=== PATIENT | male | born 1955 | race Caucasian/White ===

== ENCOUNTER → 2016-07-05 | Outpatient (CLI) | payer OTHER, BC ==
[~2016-07-05] MED LIST: HYDROCODON-ACE1 EAC9 PO; LISINOPRIL20 MG PO; SIMVASTATIN20 MG PO; ZOCOR PO
--- NOTE | ~2016-07-05 | MR164 ---
[facility] A Service of [facility] & [facility] RADIOLOGY TEXT RESULTS PATIENT: CARLEY VILLEGAS LOCATION: [facility] : 53 UNIT #: [id number] AGE: [address]: Lavonne Way MD SEX: M ORDER DR: [id number] [address] [address] [id number] O MR#: [id number] Acc #: [id number] NAME: CARLEY VILLEGAS : 1955 SEX: M STUDY DATE/TIME: 07/05/2016 15:10 UNIT: [facility] ROOM: STUDY DESCRIPTION: MR Shoulder Wo Contrast Lt Attending Physician: Lavonne Way M.D. Referring Physician: Lavonne Way M.D. Ordering Physician: Lavonne Way M.D. Primary Care Physician: Lavonne Way M.D. MRI CENTER REPORT This report is preliminary unless electronic signature is present. EXAM MRI of the left shoulder without contrast HISTORY 60-year-old male complains of shoulder pain, chronic shoulder pain. Also complains of biceps muscle pain. Limited range of motion. Job requires repetitive motion. FINDINGS Multiplanar multiecho imaging was performed of the left shoulder utilizing a high field magnet dedicated protocol. Examination demonstrates a moderate AC joint arthropathy with superiorly directed distal clavicular osteophyte capsular hypertrophy and a trace amount of AC joint fluid. No significant periarticular edema. Marrow signal within the proximal humerus and glenoid appears normal. Glenohumeral joint fluid within normal limits. The rotator cuff is abnormal demonstrating marked attenuation of the critical zone and distal aspect of the supraspinatus tendon probably represents an area of acute on chronic tear and chronic tendinopathy. There is a focal area of attenuation measuring 9 mm AP by 13 mm medial to lateral dimension within the critical zone of the supraspinatus tendon which probably represents a full-thickness or near full-thickness tear. I also suspect there is a full-thickness tear along the anterior aspect of the distal insertion estimated up to 1.5 cm though this is somewhat difficult to confirm on other planes of imaging. Again both the supraspinatus and infraspinatus tendons demonstrate attenuation most likely related to extensive partial tears and chronic tendinopathy. There is a moderate amount of subacromial-subdeltoid bursal inflammation. Teres minor tendon appears intact. The subscapularis tendon appears intact. Along the superior margin of the subscapularis tendon in the anterior medial shoulder there is a prominent fluid collection surrounding the superior margin of the subscapularis tendon. It is unclear whether this [facility] A Service of [facility] RADIOLOGY TEXT RESULTS PATIENT: CARLEY VILLEGAS LOCATION: [facility] : 54 UNIT #: [id number] AGE: [address]: Lavonne Way MD SEX: M ORDER DR: represents a ganglion cyst or represents a component of bursitis. This measures approximately 4.3 cm medial to lateral by 2.8 cm cephalocaudal dimension by approximately 1.7 cm in depth. There is degeneration of the superior labrum. The biceps anchor is not visualized and the long tendon of the biceps is not seen within the bicipital groove and felt to be torn. There does appear to be a thin slip of tissue within the anterior bicipital groove which may represent a slip of the biceps or a small remnant of the biceps. This structure appears partially subluxed out of the bicipital groove into the substance of the subscapularis tendon and may represent a partial tear of the cranial fibers of the subscapularis tendon. Anterior-posterior labrum unremarkable. Deltoid and extraarticular soft tissues unremarkable. IMPRESSION 1. Diffuse rotator cuff pathology with a suspected full-thickness tear within the critical zone of the supraspinatus tendon measuring 9 x 13 mm. Both the supraspinatus and infraspinatus tendons demonstrate evidence of chronic tendinopathy and probable extensive partial tears and there may even be a full-thickness tear in the far anterior distal aspect of the supraspinatus tendon though this is not well demonstrated on this study. Please see above for details. 2. Subacromial-subdeltoid bursitis. 3. Subscapularis tendinopathy with a suspected partial tear cranial fibers of the subscapularis. 4. A suspected complete tear of the long tendon of the biceps though there may be an accessory slip or remnant of the long tendon partially subluxed out of the bicipital groove. 5. Prominent multiloculated collection along the superior margin of the subscapularis medial to the glenohumeral joint. It is unclear whether this represents a ganglion cyst or represents a component of bursitis or localized synovitis. 6. Mild AC joint arthropathy. Dictated by... Bill Pennington M.D. THIS IS AN ELECTRONICALLY VERIFIED REPORT Bill Pennington M.D. at 07/08/2016 7:41 AM SONAM/topher TD: 07/06/2016 04:50 JOB #: [id number] MRI CENTER REPORT
== END | disposition home or self-care (01) ==
LOC: SMRI 14:43
DX: M25.512 Pain in left shoulder (principal); M75.92 Shoulder lesion, unspecified, left shoulder; M75.52 Bursitis of left shoulder; M19.012 Primary osteoarthritis, left shoulder
CPT/HCPCS: 73221

== ENCOUNTER 2016-12-13 00:39 | Observation (INO) | payer OTHER, BC ==
[~2016-12-13] VITALS: Ht 182.9 cm; Wt 101.8 kg
--- NOTE | ~2016-12-13 | OR ---
Unit #: [id number] #: [id number] Patient: CARLEY VILLEGAS [id number] [address] [place], [place] [address] [id number] MR#: [id number] NAME: CARLEY VILLEGAS ROOM: 464 Date of Procedure: 12/13/2016 Admission Date: 12/13/2016 Surgeon: Oswaldo Ibarra Jr., M.D. : 1955 Attending Physician: Andrea Peacock M.D. Primary Care Physician: Lavonne Way M.D. OPERATIVE REPORT INDICATION FOR PROCEDURE The patient is a 61-year-old white male, admitted through the emergency room with classic signs and symptoms for acute appendicitis. CT scan revealed evidence of significant inflammation of the appendix with severe appendicitis without perforation evident or abscess formation. He is brought to the operating room at this time for laparoscopic appendectomy possible open. The patient understands the procedure including the risks, including that of abscess formation, staple leaks, bleeding and infection, and consents. PREOPERATIVE DIAGNOSIS Acute nonperforated appendicitis. POSTOPERATIVE DIAGNOSIS Acute nonperforated appendicitis noting gangrenous appendicitis with retrocecal appendix. ANESTHESIA General with endotracheal intubation, 0.5% Marcaine with epinephrine locally. PROCEDURE PERFORMED Laparoscopic appendectomy. With lysis of adhesions requiring 10 minutes to 15 minutes. DESCRIPTION OF PROCEDURE The patient was positioned in the supine position. After being anesthetized and intubated, he was prepped and draped in routine fashion for laparoscopic appendectomy. A small infraumbilical incision made approximately 1 cm in length. This was carried down to the fascia. The fascia and umbilicus were lifted with a towel clip, and a Veress needle introduced into the abdomen. The abdomen was then inflated with CO2 gas. A 5-mm port was introduced into the abdomen followed by the camera. There was no evidence of any injury related to introduction of the port or the Veress needle. Brief intra-abdominal exploration was carried out. The patient was noted to have a gangrenous retrocecal appendix. No other specific abnormalities. Additional 5-mm port was placed jail between the umbilicus and suprapubic area and a 12-mm port just to the right of the upper midline. The appendix was freed up the surrounding tissue with lysis of adhesions requiring approximately 15 minutes and mobilization of the right colon. A window was created at the base, it was then stapled and transected with the 3.5 mm stapler, and the mesoappendix was then Unit #: [id number] #: [id number] Patient: CARLEY VILLEGAS stapled with the vascular load x2. The appendix was placed in EndoCatch bag and brought out through the larger port site and sent to pathology. The port was replaced. The right lower quadrant checked, there was no evidence of any bleeding from the staple lines. A small amount of blood and fluid in the pelvis were then absorbed on several sponges placed within the abdomen and brought directly out. After sponge count was correct x3. The ports were removed. The fascia in the larger port site was approximated using the neoClose technique. The wounds were irrigated and after hemostasis achieved with Bovie cautery, they were injected with 0.5% Marcaine with epinephrine locally. The skin edges were approximated with stainless-steel skin clips and skin stapling device. Sterile dressings were applied externally. Estimated blood loss less than 50 mL. The patient received less than 1500 mL crystalloid solution during the procedure. Sponges and instrument counts were correct x3. No drains used. No complications. The patient was taken to the recovery room with stable vital signs in satisfactory condition. Dictated by... Oswaldo Ibarra Jr., M.Jonathan. ADELA/kinsey TD: 12/17/2016 08:03 JOB #: [id number] OPERATIVE REPORT Page 1 of 1 X Oswaldo Ibarra MD X PROCEDURE OPERATIVE NOTE
--- NOTE | ~2016-12-13 | HP ---
Unit #: [id number] #: [id number] Patient: CARLEY VILLEGAS [id number] [facility]. [place], [place] [address] [id number] MR#: [id number] NAME: CARLEY VILLEGAS. ROOM: 460 Age: 61 Sex: M Admission Date: 12/13/2016 : 1955 Attending Physician: Andrea Peacock M.D. Primary Care Physician: Lavonne Way M.D. HISTORY AND PHYSICAL CHIEF COMPLAINT Lower abdominal pain. HISTORY OF PRESENT ILLNESS The patient is a 61-year-old white male who was in normal good health up until yesterday while playing golf and developed significant lower abdominal pain. This progressively worsened. He presented to the emergency room with these complaints. He has had no nausea or vomiting. No fever. No chills and no other basic symptoms. He did have a recent colonoscopy by me approximately 7 months ago, which was not remarkable except for noting a past history for polyps. The patient has been in normal good health otherwise. PAST MEDICAL HISTORY Serious illnesses. He has had some hypertension and cardiac disease, and has been on lisinopril for this at home. Also simvastatin for sleep and he is on no other medications. ALLERGIES None known. TRANSFUSION None in the past. PAST SURGICAL HISTORY Except for colonoscopy he has had no major surgery. FAMILY HISTORY Noncontributory. SOCIAL HISTORY Patient is and lives with his family. Has normal good appetite and no recent weight change. He is retired. He is a nonsmoker, basically nondrinker. IMMUNIZATIONS Up-to-date. REVIEW OF SYSTEMS Nonremarkable except noted in the present illness. PHYSICAL EXAMINATION VITAL SIGNS: Temperature is 98.2, pulse 78, respirations 20, blood pressure 137/80. Unit #: [id number] #: [id number] Patient: CARLEY VILLEGAS GENERAL DESCRIPTION: Patient is well developed, well nourished, 61-year-old white male in no acute distress. HEENT: Unremarkable. CHEST: Equal bilateral expansion with bilateral breath sounds. LUNGS: Clear bilaterally. HEART: Regular rhythm without murmurs or gallops. There is no evidence of cardiomegaly clinically. ABDOMEN: Soft, moderately tender in the right lower quadrant without mass or organomegaly. There is no gross abdominal distention. There is some guarding without rebound. Active bowel sounds present. No evidence of ascites or hernias. EXTREMITIES: Full range of motion without limitation. There is no evidence of peripheral edema. BACK: There is no CVA tenderness. NEUROLOGIC: Grossly intact. White blood cell count is 12,000. Chemistries are normal except for minimal elevation of his blood sugar. DIAGNOSTIC STUDIES CT scan reveals evidence of severe acute appendicitis without obvious perforation or abscess formation. IMPRESSION The patient has acute appendicitis. Plan will be to go ahead with laparoscopic exam with laparoscopic appendectomy if possible. Patient understands the procedure including the risk, including that of bleeding, perforation and intra-abdominal organ injury and abscess formation and consents. Dictated by Oswaldo Ibarra Jr., MPierce. ADELA/yara TD: 12/13/2016 06:41 JOB #: [id number] HISTORY AND PHYSICAL Page 1 of 1 X Oswaldo Ibarra MD X HISTORY AND PHYSICAL
[~2016-12-13 00:39] MED LIST changes: -HYDROCODON-ACE1 EAC9 PO
[2016-12-13 04:24] LABS: BASOPHIL# 0.1 X10e3 (0-0.3); BASOPHIL% 0.4 % (0-2.5); EOSINOPHIL# 0.1 X10e3 (0-0.7); EOSINOPHIL% 0.7 % (0.0-7.0); HEMATOCRIT 38.7 % (38.0-50.0); HEMOGLOBIN 13.3 gm/dL (13.0-16.0); LYMPHOCYTE# 2.6 X10e3 (1.0-3.5); MEAN CELL VOLUME 92.7 FL (83-96); MEAN CORPUSCULAR HEMOGLOBIN 31.8 PG (28-34); MEAN CORPUSCULAR HGB CONC 34.4 g/dL (30-36); MEAN PLATELET VOLUME 9.4 FL (6.5-11.5); MONOCYTE# 0.9 X10e3 (0-1.0); MONOCYTE% 7.5 % (3.0-12.0); NEUTROPHIL# 8.8 X10e3 (1.5-7.1); NEUTROPHIL% 70.4 % (40-75); PLATELET COUNT 183 X10e3 (140-420); RED BLOOD COUNT 4.17 X10e (3.90-5.60); RED CELL DISTRIBUTION WIDTH 12.8 % (11.0-15.5); WHITE BLOOD COUNT 12.5 X10e3 (4.0-10.5)
[2016-12-13 04:25] LABS: DIFF IND NO
[2016-12-13 05:10] LABS: GLOM FILT RATE Estimated 80.3 mL/min (>60); POTASSIUM 4.2 mmol/L (3.5-5.1)
[2016-12-14 03:16] LABS: HEMATOCRIT 41.1 % (38.0-50.0); MEAN CELL VOLUME 93.8 FL (83-96); MEAN CORPUSCULAR HEMOGLOBIN 32.1 PG (28-34); MEAN CORPUSCULAR HGB CONC 34.2 g/dL (30-36); MEAN PLATELET VOLUME 9.7 FL (6.5-11.5); RED BLOOD COUNT 4.38 X10e (3.90-5.60); RED CELL DISTRIBUTION WIDTH 13.2 % (11.0-15.5); WHITE BLOOD COUNT 10.6 X10e3 (4.0-10.5)
[2016-12-14] MEDS ORDERED: HYDROCODON-ACE1 EAC9 PO (09:59)
== END 2016-12-14 10:50 | disposition home or self-care (01) | DRG 373 ==
LOC: CEDOF 00:39 → C4B 02:14 → C4C 10:28
PROVIDERS: Surgery
DX: K35.3 Acute appendicitis with localized peritonitis (principal); I10 Essential (primary) hypertension; Z87.891 Personal history of nicotine dependence
CPT/HCPCS: 80048; 85025; 85027; 88304; 94010; 96365; 96366; 96375; 96376; G0378; J0330; J2250; J2405; J2543; J2710; J3010